=== PATIENT | male | born 1985 | race Caucasian/White ===

== ENCOUNTER 2017-12-17 19:45 | Inpatient (IN) | payer SELFPAY ==
[~2017-12-17] VITALS: Ht 175.3 cm; Wt 76.7 kg
[2017-12-17] MEDS ORDERED: ASPIRIN 325MG EC TABLET PO ONE (21:45)
[2017-12-17 22:50] LABS: BASOPHILS % 0.3 % (0.0-2.0); EOSINOPHILS % 2.5 % (0.0-5.0); HEMATOCRIT. 43.4 % (42.0-52.0); HEMOGLOBIN. 15.1 g/dL (14.0-18.0); LYMPHOCYTES % 40.6 % (20.0-50.0); MEAN CORPUSCULAR HEMOGLOBIN 31.2 pg (28.0-32.0); MEAN CORPUSCULAR VOLUME 89.5 fL (80.0-94.0); MEAN PLATELET VOLUME 8.1 fl (7.4-10.4); MONOCYTES % 10.4 % (2.0-8.0); NEUTROPHILS % 46.2 % (40.0-76.0); PLATELET 230 x1000/uL (130-400); RED BLOOD CELL COUNT 4.85 mill/uL (4.7-6.1); RED CELL DISTRIBUTION WIDTH 12.6 % (11.6-14.6)
[2017-12-17 22:54] LABS: CHLORIDE 103 mEq/L (98-107)
[2017-12-17 22:58] LABS: INR 1.1; PARTIAL THROMBOPLASTIN TIME 29.8 sec (23.4-31.0); PROTHROMBIN TIME 11.3 sec (9.4-11.6)
[2017-12-18] MEDS ORDERED: MORPHINE SULFATE 4 MG/ML CPJ (NOT FOR IM USE) IV PRN (02:15)
[2017-12-18] MEDS ORDERED: GUAIFENESIN 200MG/10ML SUGAR FREE UDC PO PRN (02:15)
[2017-12-18] MEDS ORDERED: DOCUSATE SODIUM 100MG CAPSULE PO PRN (02:15)
[2017-12-18] MEDS ORDERED: DIPHENHYDRAMINE 50MG/ML VIAL IV PRN (02:15)
[2017-12-18] MEDS ORDERED: ACETAMINOPHEN 650MG/20.3ML UDC GT PRN (02:15)
[2017-12-18] MEDS ORDERED: ONDANSETRON HCL 4MG/2ML VIAL IV PRN (02:15)
[2017-12-18] MEDS ORDERED: IPRATROPIUM/ALBUTEROL 0.5-3(2.5)MG/3ML NEB INH PRN (02:15)
[2017-12-18] MEDS ORDERED: HYDROCODONE/ACETAMINOPHEN 5/325MG TABLET PO PRN (02:15)
[2017-12-18] MEDS ORDERED: ACETAMINOPHEN 650MG SUPP PR PRN (02:15)
[2017-12-18] MEDS ORDERED: MAGNESIUM/ALUMINUM HYDROXIDE/SIMETHICONE 30ML UDC PO PRN (02:15)
[2017-12-18] MEDS ORDERED: CLONIDINE 0.1MG TABLET PO PRN (02:15)
[2017-12-18] MEDS ORDERED: ACETAMINOPHEN 325MG TABLET PO PRN (02:15)
[2017-12-18] MEDS ORDERED: NA PHOS,M-B/NA PHOS,DI-BA ENEMA 118ML PR PRN (02:15)
[2017-12-18] MEDS ORDERED: HYDROCODONE/ACETAMINOPHEN 10/325MG TABLET PO PRN (02:15)
[2017-12-18 06:45] LABS: CREATINE KINASE 127 IU/L (39-308)
[2017-12-18 08:00] VITALS: BP 134/89
[2017-12-18 10:00] VITALS: BP 118/84
[2017-12-18 12:00] VITALS: BP 108/71
[2017-12-18] MEDS: ASPIRIN 81MG EC TABLET PO SCH (12:52)
[2017-12-18] MEDS: ENOXAPARIN 40MG/0.4ML SYR SUBCUT SCH (12:52)
[2017-12-18 14:25] LABS: CLARITY URINE CLEAR (CLEAR); COLOR URINE YELLOW (YELLOW); KETONES URINE NEGATIVE (NEGATIVE); LEUKOCYTE ESTERASE URINE NEGATIVE (NEGATIVE); NITRITE URINE NEGATIVE (NEGATIVE); OCCULT BLOOD URINE NEGATIVE (NEGATIVE); PH URINE 7.5 (4.5-8.0); PROTEIN URINE NEGATIVE (NEGATIVE); SPECIFIC GRAVITY URINE 1.012 (1.005-1.030); UROBILINOGEN URINE 0.2 E.U./dL (0.2-1.0)
[2017-12-18 14:40] LABS: *AMPHETAMINES SCREEN URINE NEGATIVE (NEGATIVE); *BARBITURATES SCREEN URINE NEGATIVE (NEGATIVE); *BENZODIAZEPINES SCREEN URINE NEGATIVE (NEGATIVE); *COCAINE SCREEN URINE NEGATIVE (NEGATIVE); CANNABINOID URINE SCREEN NEGATIVE (NEGATIVE); METHADONE URINE SCREEN NEGATIVE (NEGATIVE); OPIATES URINE SCREEN NEGATIVE (NEGATIVE)
[2017-12-18 14:43] LABS: PHENCYCLIDINE URINE SCREEN NEGATIVE (NEGATIVE)
[2017-12-18 16:00] VITALS: BP 100/74
[2017-12-18 17:10] LABS: CREATINE KINASE 126 IU/L (39-308)
[2017-12-18 17:11] LABS: CREATINE KINASE MB FRACTION 1.2 ng/mL (0.5-3.6)
[2017-12-18 19:44] LABS: CHLORIDE 102 mEq/L (98-107)
[2017-12-18 19:51] LABS: LDL CHOLESTEROL 225 mg/dL (5-100)
[2017-12-18 19:54] LABS: HDL CHOLESTEROL 43 mg/dL (40-59)
[2017-12-18 20:00] VITALS: BP 105/64
[2017-12-18] MEDS: SODIUM CHLORIDE 0.9% INJ 3ML FLUSH IVF SCH (21:47)
[2017-12-18 23:33] LABS: BASOPHILS % 0.3 % (0.0-2.0); EOSINOPHILS % 3.2 % (0.0-5.0); HEMATOCRIT. 42.4 % (42.0-52.0); HEMOGLOBIN. 15.1 g/dL (14.0-18.0); LYMPHOCYTES % 45.6 % (20.0-50.0); MEAN CORPUSCULAR VOLUME 89.6 fL (80.0-94.0); MEAN PLATELET VOLUME 8.9 fl (7.4-10.4); MONOCYTES % 10.6 % (2.0-8.0); NEUTROPHILS % 40.3 % (40.0-76.0); PLATELET 229 x1000/uL (130-400); RED BLOOD CELL COUNT 4.74 mill/uL (4.7-6.1); RED CELL DISTRIBUTION WIDTH 12.7 % (11.6-14.6)
[2017-12-19] VITALS: BP 91/57
[2017-12-19 04:00] VITALS: BP 102/63
[2017-12-19] MEDS: SODIUM CHLORIDE 0.9% INJ 3ML FLUSH IVF SCH ×2 (05:50→21:57)
[2017-12-19 07:00] LABS: BASOPHILS % 0.2 % (0.0-2.0); EOSINOPHILS % 3.2 % (0.0-5.0); HEMOGLOBIN. 15.6 g/dL (14.0-18.0); LYMPHOCYTES % 38.4 % (20.0-50.0); MEAN CORPUSCULAR HEMOGLOBIN 31.3 pg (28.0-32.0); MEAN CORPUSCULAR VOLUME 90.4 fL (80.0-94.0); MEAN PLATELET VOLUME 8.7 fl (7.4-10.4); NEUTROPHILS % 45.2 % (40.0-76.0); PLATELET 220 x1000/uL (130-400); RED BLOOD CELL COUNT 4.98 mill/uL (4.7-6.1); RED CELL DISTRIBUTION WIDTH 12.6 % (11.6-14.6)
[2017-12-19 08:00] VITALS: BP 118/71
[2017-12-19] MEDS: ASPIRIN 81MG EC TABLET PO SCH (08:05)
[2017-12-19] MEDS: ENOXAPARIN 40MG/0.4ML SYR SUBCUT SCH (08:05)
[2017-12-19 08:27] LABS: CHLORIDE 103 mEq/L (98-107)
[2017-12-19 08:42] LABS: LDL CHOLESTEROL 213 mg/dL (5-100)
[2017-12-19 08:44] LABS: HDL CHOLESTEROL 40 mg/dL (40-59)
[2017-12-19 12:00] VITALS: BP 109/68
[2017-12-19] MEDS ORDERED: REGADENOSON 0.4 MG/5 ML IV ONE (14:30)
[2017-12-19] MEDS ORDERED: IOHEXOL-350 100 ML BOTTLE ONE (14:35)
[2017-12-19 16:00] VITALS: BP 110/71
[2017-12-19 20:00] VITALS: BP 105/68
[2017-12-20] VITALS: BP 102/57
[2017-12-20 04:00] VITALS: BP 96/56
[2017-12-20] MEDS: SODIUM CHLORIDE 0.9% INJ 3ML FLUSH IVF SCH (06:02)
[2017-12-20 08:00] VITALS: BP 97/65
[2017-12-20] MEDS: ASPIRIN 81MG EC TABLET PO SCH (09:00)
[2017-12-20] MEDS ORDERED: REGADENOSON 0.4 MG/5 ML IV ONE (09:03)
[2017-12-20] MEDS: ENOXAPARIN 40MG/0.4ML SYR SUBCUT SCH (10:30)
[2017-12-20] MEDS ORDERED: FAMO40TA70 MT (11:39)
[2017-12-20 11:51] VITALS: BP 109/70
[2017-12-20 12:00] VITALS: BP 109/70
[2017-12-20] MEDS ORDERED: ATORVASTATIN CALCIUM 20MG TABLET PO SCH (21:00)
== END 2017-12-20 12:30 | disposition home or self-care (01) | DRG 203 ==
LOC: ER 19:45 → 5WST 12-18 02:13 → EDBEDREQ 12-18 02:16 → ENRESERV 12-18 07:15
PROVIDERS: ADMIT Family Medicine; ATTEND Family Medicine
DX: R07.89 Other chest pain (principal); E78.5 Hyperlipidemia, unspecified; E78.00 Pure hypercholesterolemia, unspecified; Z60.2 Problems related to living alone; Z79.82 Long term (current) use of aspirin
CPT/HCPCS: 36415; 71045; 71275; 78452; 80053; 80061; 80305; 81003; 82550; 82553; 83036; 84484; 85025; 85379; 85610; 85730; 93005; 93017; A9500; J1650; J2785; Q9967